=== PATIENT | female | born 1980 | race Caucasian/White ===

== ENCOUNTER 2017-02-04 23:16 | Inpatient (IN) | payer OTHER ==
[~2017-02-04] VITALS: Ht 162.6 cm; Wt 60.8 kg
[~2017-02-04 23:16] MED LIST: AMOXICILLIN500 MG PO; FLONASE ALLERG9.9 ML NS
--- NOTE | 2017-02-05 01:40 | NUR ---
PT BROUGHT TO ROOM 130 FROM ER. PT NON-VERBAL AT THIS TIME. RESTLESSLY THRASHING IN BED. PT APPEARS TO BE UNABLE TO UNDERSTAND VERBAL COMMANDS AT THIS TIME. SKIN GROSSLY INTACT. IV SITES INTACT.
--- NOTE | 2017-02-05 02:19 | NUR ---
IV SITES INTACT, NO REDNESS OR SWELLING NOTED, FLUIDS AND FLUSHES INFUSE EASILY. PT NON-VERBAL, NOT RESPONSIVE TO VERBAL STIMULI OR COMMANDS. PT PULLS AWAY FROM ANY PHYSICAL CONTACT. TWITCHING IN BED. VITALS STABLE AT THIS TIME. HE CATH DRAINING DILUTE URNIE. PT HAS NOT ATTEMPTED TO CLIMB OUT OF BED.
--- NOTE | 2017-02-05 02:53 | NUR ---
PT NOT JERKING IN BED MUCH, APPEARS TO BE RESTING SLIGHLTY MORE COMFORTABLY. VITALS WNL. IV SITES INTACT.
--- NOTE | 2017-02-05 04:15 | NUR ---
IV SITES INTACT, NO REDNESS OR SWELLING NOTED, FLUSH EASILY.
--- NOTE | 2017-02-05 04:35 | NUR ---
PT GIVEN 1 MG IV ATIVAN FOR AGITATION AND RESTLESS CONSTANT MOVEMENT.
--- NOTE | 2017-02-05 05:15 | NUR ---
PERSON NAMED KD CALLED FOR INFORMATION ON PT, NO ABLE TO PROVIDE ANY AT THIS TIME DUE TO PT HIPPA RIGHTS.
--- NOTE | 2017-02-05 05:39 | NUR ---
PT TWITCHING AND MOVING LEGS AND ARMS RESTLESSLY. PT NOT OPENING EYES, NOT OPENING EYES OR RESPONDING VERBALLY TO STIMULI. PT APPEARS TO BE UNABLE TO HOLD STILL, CONSTANTLY MOVING.
--- NOTE | 2017-02-05 06:20 | NUR ---
PERSON NAMED IRISH CALLED FOR INFORMATION ON PT, UNABLE TO PROVIDE INFO AT THIS TIME DUE TO PT HIPPA RIGHTS.
--- NOTE | 2017-02-05 06:48 | NUR ---
PT STILL HAVING TWITCHING SPASTIC MOVEMENTS, STRANGE FACIAL EXPRESSIONS VARY FROM SMILES TO GRIMMACING, PT DOES NOT CRY OUT, PT NOT RESPONSIVE TO VERBAL COMMANDS OR STIMULUS.
--- NOTE | 2017-02-05 06:52 | NUR ---
SIEZURE PADS APPLIED TO BED.
--- NOTE | 2017-02-05 07:02 | EKG ---
[facility] [place] [facility] [address] [place], [place] [address] Signed Sinus tachycardia Incomplete right bundle branch block Nonspecific T wave abnormality Abnormal ECG No previous ECGs available Confirmed by STEPHEN GUADARRAMA MD ([id number]) on 02/05/2017 7:01:50 AM Electronically Signed By: STEPHEN GUADARRAMA MD 02/05/17 0702 PATIENT NAME: SABINE THOMPSON Electrocardiogram DATE OF : 78 PHYSICIAN: STEPHEN GUADARRAMA MD REPORT #: [id number] REPORT IS CONFIDENTIAL AND NOT TO BE RELEASED WITHOUT AUTHORIZATION
--- NOTE | 2017-02-05 07:44 | NUR ---
PT APPEARS TO BE UNRESPONSIVE, BUT WHEN YOU TALK WITH HER AND TELL HER TO GET HER LEGS BACK IN BED OR SHE MAY END UP IN RESTRAINTS SHE FOLLOWS DIRECTIONS. PT HAS TAKEN OFF HER OXY MASK AND SPO2 IS 92% ON ROOM AIR. SHE WILL OPEN EYES WHEN ASKED TOO.
--- NOTE | 2017-02-05 08:37 | NUR ---
PT MARCFRALFREDO AND HIS MOTHER INTO SEE PT, THEY DID NOT COME INTO THE PT ROOM DUE TO SHE IS NOT RESPONSIVE AT THIS TIME AND WITH INCREASED INTERACTION THE MORE MOVEMENTS, BUT SHE DOES FOLLOW DIRECTIONS.
--- NOTE | 2017-02-05 08:56 | NUR ---
pt appears to be sleeping soundly at this time, heart rate decreased to the 90's and less movements noted.
--- NOTE | 2017-02-05 10:22 | NUR ---
PT CONTIOUES TO SLEEP AT THIS TIME, ON ROOM AIR AT THIS TIME WITH SPO2 AT 90% AND HIGHER AT TIMES.
--- NOTE | 2017-02-05 10:44 | NUR ---
pt aware at this time, DR GUADARRAMA INTO SEE PT AT THIS TIME, PT DOES NOT REMENBER WHAT HAPPEN LAST NIGHT, NEW ORDERS RECEIVED AT THIS TIME.
--- NOTE | 2017-02-05 10:57 | NUR ---
TALKED WITH PT'S THIS AM, HE WAS CONCERNED FOR HER HEALTH AND WANTED TO KNOW WHAT HAD HAPPENED. PT DOES NOT LIVE WITH HIM AT THIS TIME, AND HE IS NOT RESPONABLE FOR HER BILLS. THEY WILL CALL LATER THIS AFTERNOON TO SEE IF PT WOULD LIKE A RIDE,
--- NOTE | 2017-02-05 11:21 | NUR ---
PT AWAKEN NERI GATES'Lucio AT THIS TIME, PT SITTING UP AND FOLLOWING DIRECTIONS, DRINKING SOME WATER AND JUICE. CLEAR LIQUID TRAY ORDERED.
--- NOTE | 2017-02-05 12:19 | NUR ---
PT CONTIOUES TO SLEEP WHEN STAFF IS NOT IN THE ROOM TO KEEP HER AWAKE. PT IS COOPERATIVE WITH HOSPITAL ROUTINE AT THIS TIME. CONTIOUES TO TRY TO EAT HER CLEAR LIQUID TRAY. SHE DOES C/O A SORE THROAT AND STAFF CONTIOUES TO EXPLAINE WHAT HAPPENED LAST NIGHT.
--- NOTE | 2017-02-05 12:45 | NUR ---
TRIED TO SPEAK TO PATIENT REGARDING NEEDS. SHE IS VERY DROWSY. ABLE TO ANSWER SOME THINGS, DID STATES SHE LIVES WITH "FRIENDS". SAID SHE DOESN'T HAVE A PCP OR PHARMACY. STATED SHE HAD 5 STEPS INTO HOUSE. ALL OTHER QUESTIONS SHE DID NOT ANSWER WELL ENOUGH TO CHART. WILL SEE PATIENT WHEN SHE IS MORE ALERT.
--- NOTE | 2017-02-05 13:09 | NUR ---
SUPERVISING EDITOR TRAILER REQUESTED NOT TO VISIT AT THIS MOMENT. WILL CONTINUE TO FOLLOW
--- NOTE | 2017-02-05 15:16 | NUR ---
PT CONTIOUES TO SLEEP, AWAKENS WHEN SPOKEN TOO. PT REMAINS COOPERATIVE, AND WHEN AWKE SHE ASK TO GOHOME, BUT THEN FALLS BACK TO SLEEP. "I JUST CAN'T STAY AWAKE."
--- NOTE | 2017-02-05 16:34 | NUR ---
MED REC COMPLETE. NO KNOWN PRESCRIPTION HOME MEDICATIONS.
--- NOTE | 2017-02-05 16:49 | NUR ---
PT DCD TO HOME WITH MELANIE AND HIS MOTHER, FOLLOW UP APPOINTMENT MADE AND PRESSER MACHINE ENCOURAGED THEM TO KEEP THE APPOINTMENT SO THAT THE PATIENT CAN GET FOLLOW UP CARE. ENCOURAGE ALL TO STOP USING METHA ND ANY OTHER FORM OF DRUG. PT AND MELANIE JUST LAUGH, BUT HIS MOTHER DID NOT THINK IT WAS FUNNY. ALL BELONGING WENT WITH PT AND HANDOUT GIVEN.
== END 2017-02-05 16:30 | disposition home or self-care (01) | DRG 917 ==
LOC: ED 23:16 → CCU 02-05 01:01
PROVIDERS: ADMIT Internal Medicine
PROC: 0BH17EZ Insertion of Endotracheal Airway into Trachea, Via Natural or Artificial Opening (ICD-10-PCS; principal; 2017-02-05)
PROC: 5A1935Z Respiratory Ventilation, Less than 24 Consecutive Hours (ICD-10-PCS; 2017-02-05)
DX: T43.621A Poisoning by amphetamines, accidental (unintentional), initial encounter (principal); G92 Toxic encephalopathy; F17.200 Nicotine dependence, unspecified, uncomplicated; F12.10 Cannabis abuse, uncomplicated; I95.9 Hypotension, unspecified; R00.0 Tachycardia, unspecified
CPT/HCPCS: 31500; 36415; 36600; 51701; 70450; 71010; 80048; 80053; 80176; 81001; 82803; 84443; 84703; 85025; 93005; 93010; 94799; 96361; 96374; 96375; 99291; G0480; J0330; J1200; J2060; J2250; J7030

== ENCOUNTER 2017-11-14 11:29 | Emergency (ER) | payer MEDICAID ==
[~2017-11-14] VITALS: Ht 162.6 cm; Wt 56.7 kg
[2017-11-14] MEDS ORDERED: PRENATAL VITAM1 EAC8 PO (11:41)
[2017-11-14] MEDS ORDERED: NORCO 5-325 TA1 EACH PO (16:27)
== END 2017-11-14 17:41 | disposition home or self-care (01) ==
LOC: ED 11:29
DX: O03.9 Complete or unspecified spontaneous abortion without complication (principal); Z29.13 Encounter for prophylactic Rho(D) immune globulin; F17.200 Nicotine dependence, unspecified, uncomplicated; Z79.899 Other long term (current) drug therapy
CPT/HCPCS: 76801; 76817; 80053; 84702; 85025; 86900; 86901; 96361; 96374; 99284; J1170; J2790; J7030

== ENCOUNTER 2021-08-27 22:00 | Emergency (ER) | payer OTHER ==
[~2021-08-27] VITALS: Ht 162.6 cm; Wt 56.7 kg
[~2021-08-27 22:00] MED LIST changes: +NORCO 5-325 TA1 EACH PO; +PRENATAL VITAM1 EAC8 PO
== END 2021-08-27 23:44 | disposition home or self-care (01) ==
LOC: ED 22:00
DX: S61.211A Laceration without foreign body of left index finger without damage to nail, initial encounter (principal); S01.81XA Laceration without foreign body of other part of head, initial encounter; F17.200 Nicotine dependence, unspecified, uncomplicated; X99.1XXA Assault by knife, initial encounter
CPT/HCPCS: 12002; 12011; 73140; 99284-25

== ENCOUNTER 2021-08-31 17:24 | Emergency (ER) | payer OTHER ==
[~2021-08-31] VITALS: Ht 162.6 cm; Wt 56.4 kg
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
[2021-08-31] MEDS ORDERED: CEPHALEXIN500 M1 PO (18:38)
== END 2021-08-31 19:59 | disposition home or self-care (01) ==
LOC: ED 17:24
DX: L03.012 Cellulitis of left finger (principal); F17.200 Nicotine dependence, unspecified, uncomplicated
CPT/HCPCS: 99283; A9270

== ENCOUNTER 2021-10-17 20:16 | Emergency (ER) | payer OTHER ==
[~2021-10-17] VITALS: Ht 162.6 cm; Wt 54.5 kg
[~2021-10-17 20:16] MED LIST changes: +CEPHALEXIN500 M1 PO
[2021-10-18] MEDS ORDERED: MAPAP500 MG PO (01:23)
== END 2021-10-18 01:45 | disposition home or self-care (01) ==
LOC: ED 20:16
DX: O20.0 Threatened abortion (principal); O99.331 Smoking (tobacco) complicating pregnancy, first trimester; Z3A.10 10 weeks gestation of pregnancy
CPT/HCPCS: 36415; 76801; 76817; 80048; 81001; 84702; 85025; 86900; 86901; 96372; 99284-25; A9270; J2790; J7121

== ENCOUNTER 2025-05-23 16:11 | Emergency (ER) | payer OTHER ==
[~2025-05-23] VITALS: Ht 162.6 cm; Wt 49.6 kg
[~2025-05-23 16:11] MED LIST changes: +BUSPIRONE HCL5 MG PO; +DOXYCYCLINE HY100 MG PO; +HYDROCODON-ACE1 EA10 PO; +MAPAP500 MG PO; +TRAZODONE HCL50 MG PO; +VENLAFAXINE HCL75 M1 PO
[2025-05-23] MEDS ORDERED: OXYMETAZOLINE HCL 30 ML BTL NAS ONE (20:45)
[2025-05-23] MEDS ORDERED: ALLER-FLO15.8 ML NAS (22:01)
[2025-05-23 22:10] VITALS: BP 173/109
== END 2025-05-23 22:10 | disposition home or self-care (01) ==
LOC: ED 16:11
DX: H69.93 Unspecified Eustachian tube disorder, bilateral (principal); H61.23 Impacted cerumen, bilateral; F17.200 Nicotine dependence, unspecified, uncomplicated
CPT/HCPCS: 99282